=== PATIENT | female | born 1975 | race Caucasian/White ===

== ENCOUNTER 2017-06-29 15:58 | Emergency (ER) | payer OTHER ==
--- NOTE | 2017-06-30 11:21 | EDM.PDOC ---
ED HPI GENERAL MEDICAL PROBLEM - General Chief Complaint: General Stated Complaint: possible sinusitis Time Seen by Provider: 06/29/17 16:45 Source of Information: Reports: Patient - History of Present Illness INITIAL COMMENTS - FREE TEXT/NARRATIVE: This is a 41yo F here for facial pain and congestion. She has had prior sinusitis in the past and this is the same. Denies fever or chills but does have drainage. She is away from home and doesn't have her neti-pot present. Onset: Gradual Duration: Day(s): Location: Reports: Face Quality: Reports: Ache Severity: Moderate Improves with: Reports: None Worsens with: Reports: None Associated Symptoms: Reports: No Other Symptoms Bilateral Face Pain Score (Numeric/FACES): 4 - Related Data Allergies Allergy/AdvReac Type Severity Reaction Status Date / Time lactose Allergy Diarrhea Verified 06/29/17 16:27 peanut Allergy Difficulty Verified 06/29/17 16:27 Breathing Sulfa (Sulfonamide Allergy Cannot Verified 06/29/17 16:27 Antibiotics) Remember Home Meds: Home Meds Albuterol [Ventolin HFA] 2 puff PO PRN 06/29/17 [History] Amoxicillin/Clavulanate K [Augmentin 875 MG] 1 tab PO BID #28 tablet 06/29/17 [ Rx] Budesonide/Formoterol [Symbicort 80-4.5 MCG] 1 puff INH BID 06/29/17 [History] Desloratadine 5 mg PO DAILY 06/29/17 [History] Fluticasone Propionate [Flonase] 2 puff PO DAILY 06/29/17 [History] Hydrocortisone [Hydrocortisone 2.5% Crm] 15 gm .XX BID #1 tube 06/29/17 [Rx] Multivitamin [Multi-Vitamin Daily] 1 ea PO DAILY 06/29/17 [History] Ondansetron [IJD: Ondansetron ODT] 4 mg PO PRN 06/29/17 [History] SUMAtriptan [Imitrex] 50 mg PO PRN 06/29/17 [History] Sertraline [Zoloft] 50 mg PO DAILY 06/29/17 [History] Topiramate [Topamax] 50 mg PO PRN 06/29/17 [History] Zolpidem [Ambien] 5 mg PO 06/29/17 [History] Past Medical History HEENT History: Reports: Allergic Rhinitis, Sinusitis Respiratory History: Reports: Asthma Gastrointestinal History: Reports: Irritable Bowel Syndrome Genitourinary History: Reports: Urinary Incontinence Other Genitourinary History: stress incontinence related to bowel CA treatments Musculoskeletal History: Reports: Other (See Below) Other Musculoskeletal History: ACL tear and surgery Neurological History: Reports: Migraines Oncologic (Cancer) History: Reports: Other (See Below) Other Oncologic History: rectal cancer, skin cancer Dermatologic History: Reports: Melanoma Other Dermatologic History: skin cancer - Infectious Disease History Infectious Disease History: Reports: Chicken Pox, Shingles - Past Surgical History Respiratory Surgical History: Reports: None Female Surgical History: Reports: Other (See Below) Other Female Surgeries/Procedures: pt has gone through menopause Social & Family History - Family History Family Medical History: Noncontributory - Tobacco Use Smoking Status *Q: Never Smoker - Recreational Drug Use Recreational Drug Use: No ED ROS GENERAL - Review of Systems Review Of Systems: ROS reveals no pertinent complaints other than HPI. ED EXAM, GENERAL - Physical Exam Exam: See Below Exam Limited By: No Limitations General Appearance: Alert, WD/WN, Mild Distress Eye Exam: Bilateral Eye: EOMI Ears: Normal External Exam Nose: Nasal Drainage Throat/Mouth: Normal Inspection Head: Atraumatic, Normocephalic, Facial Tenderness, Sinus Tenderness Neck: Normal Inspection Respiratory/Chest: No Respiratory Distress, Lungs Clear Cardiovascular: Normal Peripheral Pulses GI/Abdominal: Normal Bowel Sounds Back Exam: Normal Inspection Extremities: Normal Inspection Neurological: Alert, Oriented, CN II-XII Intact Psychiatric: Normal Affect Skin Exam: Warm, Dry, Intact Course - Vital Signs Last Recorded V/S: Last Vital Signs Temp 36.2 C 06/29/17 17:06 Pulse 81 06/29/17 17:06 Resp BP 106/79 06/29/17 17:06 Pulse Ox 99 06/29/17 17:06 Departure - Departure Time of Disposition: 17:15 Disposition: Home, Self-Care 01 Condition: Good Clinical Impression: Sinusitis Qualifiers: Sinusitis location: maxillary Chronicity: acute Recurrence: not specified as recurrent Qualified Code(s): J01.00 - Acute maxillary sinusitis, unspecified - Discharge Information Prescriptions: Amoxicillin/Clavulanate K [Augmentin 875 MG] 1 tab PO BID #28 tablet Hydrocortisone [Hydrocortisone 2.5% Crm] 15 gm .XX BID #1 tube Instructions: Antibiotic Medicine, [id number] Referrals: PCP,None [Primary Care Provider] - Forms: ED Department Discharge Additional Instructions: Remember to take all antibiotics till the end of the prescription, regardless of whether or not you are feeling better. Apply cream to effected area as directed. Counseled on side effects and close monitoring and f/u with PCP or in ER as needed if symptoms persist or worsen. Discussed cessation of medications if any side effects.
== END 2017-06-29 17:00 | disposition home or self-care (01) ==
LOC: LB.ED 15:58
DX: J01.00 Acute maxillary sinusitis, unspecified (principal); J45.909 Unspecified asthma, uncomplicated; Z91.018 Allergy to other foods; Z88.2 Allergy status to sulfonamides; Z79.899 Other long term (current) drug therapy
CPT/HCPCS: 99283